=== PATIENT | male | born 1980 | race Caucasian/White ===

== ENCOUNTER → 2019-10-05 | Day surgery (SDC) | payer SELFPAY ==
[~2019-10-05] MED LIST: Bupivacaine 0.5% 30 ML SDV ONE; Dexamethasone 4 MG/ML SDV ONE; Glycopyrrolate 0.2 MG/ML 5 ML MDV ONE; HYDROmorphone 1 MG/ML Syringe IVPUSH ONE; HYDROmorphone 1 MG/ML Syringe ONE; Ketamine 500 MG/5 ML MDV IV ONE; Lactated Ringers 1,000 ML ONE; Morphine 2 MG/ML Syringe IVPUSH ONE; Neostigmine Methylsulfate 1 MG/ML 5 ML Syringe ONE; Ondansetron 4 MG/2 ML SDV ONE; Propofol 200 MG/20 ML SDV ONE; Rocuronium 50 MG/5 ML Vial ONE; Sodium Chloride 0.9% 10 ML Syringe FLUSH PRN; Succinylcholine 200 MG/10 ML MDV ONE; fentaNYL 100 MCG/2 ML SDV IVPUSH ONE; fentaNYL 250 MCG/5 ML SDV ONE
--- NOTE | 2019-10-05 18:20 | EDM.PDOC ---
ED HPI GENERAL MEDICAL PROBLEM - General Chief Complaint: Lower Extremity Injury/Pain Stated Complaint: MEDICAL Time Seen by Provider: 10/05/19 18:15 Source of Information: Reports: Patient, RN Notes Reviewed History Limitations: Reports: No Limitations - History of Present Illness INITIAL COMMENTS - FREE TEXT/NARRATIVE: 39-year-old gentleman presents emergency department a complaint of right knee pain, he injured himself he he slipped had a twisting injury he is not sure of the exact mechanism of action he initially received 1 mg of Dilaudid which did not provide any pain relief prior to my evaluation Right Knee Pain Score (Numeric/FACES): 10 - Related Data Allergies Allergy/AdvReac Type Severity Reaction Status Date / Time No Known Allergies Allergy Verified 10/05/19 18:09 Home Meds: Home Meds . [Unable to Verify Home Med List] 10/05/19 [History] Past Medical History Cardiovascular History: Reports: Hypertension Musculoskeletal History: Reports: Gout Social & Family History - Tobacco Use Smoking Status *Q: Never Smoker Review of Systems - Review of Systems Review Of Systems: See Below Musculoskeletal: Reports: Joint Pain (Right knee pain) Skin: Reports: No Symptoms Neurological: Reports: No Symptoms ED EXAM, GENERAL - Physical Exam Exam: See Below Free Text/Narrative:: Examination of the right knee I do not appreciate any erythema there is no edema noted, he will not tolerate any type of exam secondary to pain pedal pulses +2 After better pain control a patella dislocation becomes obvious to the lateral aspect Exam Limited By: No Limitations General Appearance: Alert, Mild Distress Respiratory/Chest: No Respiratory Distress, Lungs Clear, Normal Breath Sounds, No Accessory Muscle Use, Chest Non-Tender Cardiovascular: Regular Rate, Rhythm, No Murmur Course - Vital Signs Last Recorded V/S: Last Vital Signs Temp 97.1 F 10/05/19 18:04 Pulse 93 10/05/19 20:27 Resp 23 H 10/05/19 19:27 BP 179/107 H 10/05/19 20:27 Pulse Ox 96 10/05/19 19:27 - Orders/Labs/Meds Orders: Active Orders 24 hr Category Date Time Status Patient Status [ADT] Routine ADT 10/05/19 20:00 Active Knee 1V or 2V Rt [CR] Stat Exams 10/05/19 19:11 Ordered Knee 3V Rt [CR] Stat Exams 10/05/19 18:00 Taken Sodium Chloride 0.9% [Saline Flush] Med 10/05/19 17:52 Active 10 ml FLUSH ASDIRECTED PRN DME for Discharge [COMM] Per Unit Routine Oth 10/05/19 19:13 Ordered Saline Lock Insert [OM.PC] Routine Oth 10/05/19 17:52 Ordered Medication Orders Sodium Chloride (Saline Flush) 10 ml FLUSH ASDIRECTED PRN PRN Reason: Keep Vein Open Meds: Medications Generic Name Dose Route Start Last Admin Trade Name Freq PRN Reason Stop Dose Admin Sodium Chloride 10 ml 10/05/19 17:52 Saline Flush FLUSH ASDIRECTED PRN Keep Vein Open Discontinued Medications Generic Name Dose Route Start Last Admin Trade Name Freq PRN Reason Stop Dose Admin Bupivacaine HCl Confirm 10/05/19 20:05 Marcaine 0.5% Administered 10/05/19 20:06 Dose 30 ml .ROUTE .STK-MED ONE Dexamethasone Confirm 10/05/19 20:35 Dexamethasone Administered 10/05/19 20:36 Dose 4 mg .ROUTE .STK-MED ONE Fentanyl 100 mcg 10/05/19 18:17 10/05/19 18:22 Sublimaze IVPUSH 10/05/19 18:18 100 mcg ONETIME ONE Administration Fentanyl 100 mcg 10/05/19 18:42 10/05/19 18:50 Sublimaze IVPUSH 10/05/19 18:43 100 mcg ONETIME ONE Administration Fentanyl 50 mcg 10/05/19 19:58 10/05/19 20:04 Sublimaze IVPUSH 10/05/19 19:59 50 mcg ONETIME ONE Administration Fentanyl Confirm 10/05/19 20:11 Sublimaze Administered 10/05/19 20:12 Dose 250 mcg .ROUTE .STK-MED ONE Glycopyrrolate Confirm 10/05/19 20:12 Robinul Administered 10/05/19 20:13 Dose 1 mg .ROUTE .STK-MED ONE Hydromorphone HCl 1 mg 10/05/19 17:53 10/05/19 18:01 Dilaudid IVPUSH 10/05/19 17:54 1 mg ONETIME ONE Administration Lactated Ringer's Confirm 10/05/19 20:42 Ringers, Lactated Administered 10/05/19 20:43 Dose 1,000 mls @ as directed .ROUTE .STK-MED ONE Ketamine HCl 15 mg 10/05/19 18:17 10/05/19 18:27 Ketalar IV 10/05/19 18:18 15 mg ONETIME ONE Administration Ketamine HCl 15 mg 10/05/19 18:42 10/05/19 18:52 Ketalar IV 10/05/19 18:43 15 mg ONETIME ONE Administration Ketamine HCl 15 mg 10/05/19 19:58 10/05/19 20:12 Ketalar IV 10/05/19 19:59 15 mg ONETIME ONE Administration Neostigmine Methylsulfate Confirm 10/05/19 20:12 Neostigmine Administered 10/05/19 20:13 Dose 5 mg .ROUTE .STK-MED ONE Ondansetron HCl Confirm 10/05/19 20:35 Zofran Administered 10/05/19 20:36 Dose 4 mg .ROUTE .STK-MED ONE Propofol Confirm 10/05/19 19:39 Diprivan 20 Ml Administered 10/05/19 19:40 Dose 400 mg .ROUTE .STK-MED ONE Propofol Confirm 10/05/19 20:12 Diprivan 20 Ml Administered 10/05/19 20:13 Dose 200 mg .ROUTE .STK-MED ONE Rocuronium [place] Confirm 10/05/19 20:14 Zemuron Administered 10/05/19 20:15 Dose 50 mg .ROUTE .STK-MED ONE Succinylcholine Chloride Confirm 10/05/19 20:12 Quelicin Administered 10/05/19 20:13 Dose 200 mg .ROUTE .STK-MED ONE - Re-Assessments/Exams Free Text/Narrative Re-Assessment/Exam: 10/05/19 20:01 Attempted to reduce the patella on the right with conscious sedation however this was unsuccessful with multiple attempts. Next contacted Dr. Watst from orthopedics for further evaluation he also attempted and was unsuccessful. Decision was made to go to the operating room with arthroscopy for further evaluation and treatment Departure - Departure Time of Disposition: 22:20 Disposition: DC/Tfer to Other 70 Condition: Fair Clinical Impression: Dislocation of patella, right, closed Qualifiers: Encounter type: initial encounter Qualified Code(s): S83.004A - Unspecified dislocation of right patella, initial encounter - Discharge Information Sepsis Event Note - Evaluation Sepsis Screening Result: No Definite Risk - Focused Exam Vital Signs: Vital Signs Temp Pulse Resp BP Pulse Ox 10/05/19 20:27 93 179/107 H 10/05/19 19:27 87 23 H 163/129 H 96 10/05/19 18:23 82 178/104 H 99 10/05/19 18:04 97.1 F 88 18 173/93 H 98 Date Exam was Performed: 10/05/19 Time Exam was Performed: 22:19 - My Orders Last 24 Hours: My Active Orders 10/05/19 19:11 Knee 1V or 2V Rt [CR] Stat 10/05/19 19:13 DME for Discharge [COMM] Per Unit Routine 10/05/19 20:00 Patient Status [ADT] Routine - Assessment/Plan Last 24 Hours: My Active Orders 10/05/19 19:11 Knee 1V or 2V Rt [CR] Stat 10/05/19 19:13 DME for Discharge [COMM] Per Unit Routine 10/05/19 20:00 Patient Status [ADT] Routine Plan: Assessment Acuity = acute Site and laterality = dislocation right patella Etiology = secondary to a fall Manifestations = none Location of injury = Home Lab values = x-ray describes the dislocation above Plan After attempted reduction was unsuccessful in the emergency department under conscious sedation and further consultation with Dr. Watts he elected to take him back to operating room for further evaluation and treatment This note was dictated using [employer] voice recognition software please call with any questions on syntax or grammar.
--- NOTE | 2019-10-06 09:52 | CR ---
Knee 3V Rt CLINICAL HISTORY: Dislocation FINDINGS: Limited study due to positioning The patella is in the low writing position displaced laterally. There appears to be a joint effusion. No acute fracture or dislocation is noted. There are no osseous lesions. Impression: Limited study Inferior lateral dislocation of the patella Joint effusion
--- NOTE | 2019-10-12 15:48 | OR ---
DATE OF PROCEDURE: 10/05/2019 SURGEON: Lauro Watts MD PREOPERATIVE DIAGNOSES: 1. Right knee patellar dislocation. 2. Locked meniscus. POSTOPERATIVE DIAGNOSES: 1. Right knee patellar dislocation. 2. Lateral meniscus tear, locked. 3. Complete ACL tear. 4. MCL tear. 5. Severe partial PCL tear 6. Crystalline arthropathy. PROCEDURE: Arthroscopy right knee with repair of lateral meniscus and closed reduction of patellar dislocation. ANESTHESIA: General. INDICATIONS: Moises is a 39-year-old gentleman who presented to the emergency room after a fall onto his right leg. Initial x-rays showed a displaced patella laterally. Attempt was made in the emergency room by emergency room staff at closed reduction with sedation, which was unsuccessful. Second attempt was then made by myself with the assistance of emergency room staff and again was unsuccessful as the knee could not be fully extended to allow reduction of the patella. It was felt that he had other internal derangement, most likely a meniscus tear which was displaced and locked preventing full extension. He was therefore taken to the operating room for arthroscopy of the knee and further evaluation. Risks and benefits were discussed. DESCRIPTION OF PROCEDURE: After adequate anesthesia was obtained, right leg was prepped with a tourniquet about the upper thigh. Initially, the leg was locked at about 20 degrees of flexion. Examination of the knee under anesthesia revealed significant laxity with valgus stress as well as anterior-posterior translation consistent with a cruciate ligament tear and medial collateral ligament tear. After manipulating slightly in this manner the knee could be fully extended and the patella spontaneously reduced. Inferior anterior medial and lateral portals were established. Mild bloody effusion was present, although not a ethan hemarthrosis. The knee showed significant crystalline deposits throughout the knee in both articular and meniscal cartilage. Mild chondromalacia was present at patellofemoral joint, grade 2 and early grade 3. Medial compartment showed an intact meniscus, but significant laxity of opening secondary to the MCL tear and ACL tear. Intercondylar notch revealed complete tear of the ACL. There was fairly extensive invasion of the ACL by crystalline deposits, what appeared to be tophaceous gouty deposits. This likely weakened the ligament and contributed to the nature of the injury. Stump of the ACL was debrided with a shaver. Examination of the PCL showed a severe partial tear. This consisted of at least 75% of the PCL. The PCL also had crystalline deposits throughout its substance. No debridement of the PCL was done trying to preserve what remained. Lateral compartment revealed a tear along the posterior horn with some free edge fraying. The free edge fraying was debrided with a shaver and punch basket. Shaver was used to clear clot and tissue from the periphery and the Mitek meniscal repair device was utilized. A 24- degree angled introducer was used initially for the posterior horn near the root. A 2nd one was then placed using a 12-degree angle. These were tightened down with the pusher and then cut. Evaluation of the probe revealed this to be stable and no further stitches were utilized. Knee was evaluated once again. No other loose bodies or other abnormalities were identified. Knee was drained. Scope was withdrawn. Port sites were closed with 3-0 Monocryl and Steri-Strips were applied. Port sites and the knee were then injected with 0.25% Marcaine and a sterile dressing was applied. The patient tolerated the procedure well. There were no complications. He was taken from the operating room in stable condition. Lauro Watts MD /[id number]
== END ==
LOC: JP.ED 17:51 → JP.SDS 20:06
PROVIDERS: ATTEND Specialist
DX: S83.281A Other tear of lateral meniscus, current injury, right knee, initial encounter (principal); S83.511A Sprain of anterior cruciate ligament of right knee, initial encounter; S83.004A Unspecified dislocation of right patella, initial encounter; S83.411A Sprain of medial collateral ligament of right knee, initial encounter; S83.521A Sprain of posterior cruciate ligament of right knee, initial encounter; M11.9 Crystal arthropathy, unspecified; I10 Essential (primary) hypertension; W19.XXXA Unspecified fall, initial encounter
CPT/HCPCS: 27560; 27562; 29882; 73562; 96374; 96375; 96376; 99283; 99284; C1713; J0330; J1100; J1170; J2270; J2405; J2704; J2710; J3010; J3490; J7120

== ENCOUNTER 2023-11-05 14:29 | Emergency (ER) | payer OTHER ==
[2023-11-05 15:19] LABS: BASOPHILS ABSOLUTE AUTO 0.03 K/uL (0.00-0.10); BASOPHILS PERCENT AUTO 0.2 % (0.1-1.3); EOSINOPHILS PERCENT AUTO 0.8 % (0.0-5.4); HEMATOCRIT 43.5 % (38.4-49.7); HEMOGLOBIN 15.5 g/dL (12.9-16.9); IMMATURE GRAN ABSOLUTE AUTO 0.07 K/uL (0.00-0.23); IMMATURE GRAN PERCENT AUTO 0.5 % (0.0-0.7); LYMPHOCYTES ABSOLUTE AUTO 1.92 K/uL (0.8-3.3); LYMPHOCYTES PERCENT AUTO 14.9 % (11.4-47.7); MEAN CORPUSCULAR HGB CONC 35.6 g/dL (31.6-35.5); MEAN CORPUSCULAR VOLUME 89.9 fL (81.4-99.0); MONOCYTES ABSOLUTE AUTO 1.01 K/uL (0.20-0.90); MONOCYTES PERCENT AUTO 7.8 % (3.3-12.6); NEUTROPHILS ABSOLUTE AUTO 9.74 K/uL (1.0-7.6); NEUTROPHILS PERCENT AUTO 75.8 % (40.0-78.1); PLATELET COUNT,PLT 220 K/uL (130-375); RED BLOOD CELL COUNT 4.84 M/uL (4.14-5.76); WHITE BLOOD CELL COUNT,WBC 12.9 K/uL (3.2-11.0)
[2023-11-05] MEDS: Sodium Chloride 0.9% 1,000 ML IV ONE (15:20)
[2023-11-05] MEDS: Ketorolac 30 MG/ML SDV IVPUSH ONE (15:23)
[2023-11-05 15:40] LABS: A/G RATIO 0.8 (1.2-2.2); ALANINE AMINOTRANSFERASE,ALT 28 U/L (12-78); ALBUMIN 3.6 g/dL (3.4-5.0); ALKALINE PHOSPHATASE 101 U/L (46-116); ASPARTATE AMNIOTRANSFERASE,AST 23 U/L (15-37); BILIRUBIN TOTAL 2.2 mg/dL (0.2-1.0); BLOOD UREA NITROGEN,BUN 9 mg/dL (7-18); CALCIUM 9.4 mg/dL (8.5-10.1); CARBON DIOXIDE,CO2 23 mmol/L (21-32); CHLORIDE,CL 100 mmol/L (100-108); CREATININE 0.9 mg/dL (0.8-1.3); EST CRCL DRUG DOSING (CG) 120.51 mL/min; ESTIMATED GFR 107 mL/min (>60); GLUCOSE RANDOM 122 mg/dL (74-106); POTASSIUM,K 4.2 mmol/L (3.6-5.2); SODIUM,NA 136 mmol/L (140-148)
[2023-11-05 15:41] LABS: ANION GAP 17.2 mmol/L (5.0-14.0)
[2023-11-05] MEDS ORDERED: Naloxone 0.4 MG/ML SDV IVPUSH PRN (15:51)
[2023-11-05] MEDS: cefTRIAXone 2 GM in Sodium Chloride 0.9% 50 ML IV ONE (15:53)
[2023-11-05] MEDS: HYDROmorphone 1 MG/ML Syringe IVPUSH ONE (15:58)
== END 2023-11-05 17:00 | disposition home or self-care (01) ==
LOC: JP.ED 14:29
DX: L03.113 Cellulitis of right upper limb (principal); I10 Essential (primary) hypertension; Z79.899 Other long term (current) drug therapy
CPT/HCPCS: 36415; 80053; 85025; 87040; 96365; 96375; 99283; J0696; J1170; J1885; J3490; J7030